=== PATIENT | female | born 1960 | race Caucasian/White ===

== ENCOUNTER 2016-09-15 08:50 | Emergency (ER) | payer OTHER ==
[~2016-09-15] VITALS: Ht 162.6 cm; Wt 98.9 kg
[~2016-09-15 08:50] MED LIST: ATIVAN0.5 MG PO; METFORMIN HCL500 MG PO; NAPROSYN500 MG PO; OXYCONTIN10 M1 PO
[2016-09-15 09:23] LABS: HEMATOCRIT 33.9 % (37.0-47.0); HEMOGLOBIN 12.5 gm/dL (12.0-15.0); MCV 83.9 fL (80.0-100.0); RBC 4.04 mil/uL (4.20-5.00); RDW 13.4 % (10.5-14.5); WBC 9.1 thou/uL (4.0-11.0)
[2016-09-15 10:43] VITALS: BP 148/57
== END 2016-09-15 10:44 | disposition home or self-care (01) ==
LOC: ER 08:50
PROVIDERS: Emergency Medicine
DX: R04.0 Epistaxis (principal); I10 Essential (primary) hypertension; E11.9 Type 2 diabetes mellitus without complications; F31.9 Bipolar disorder, unspecified; F41.9 Anxiety disorder, unspecified; F20.89 Other schizophrenia; Z88.1 Allergy status to other antibiotic agents; Z88.0 Allergy status to penicillin; Z88.8 Allergy status to other drugs, medicaments and biological substances

== ENCOUNTER 2016-12-31 21:16 | Inpatient (IN) | payer OTHER ==
[~2016-12-31] VITALS: Ht 162.6 cm; Wt 96.3 kg
--- NOTE | ~2016-12-31 | EKG ---
[address] [place] [address] ELECTROCARDIOGRAM REPORT Name: KRISTINA STEVENSONLE Room #: 170-5 ADM IN M.R.#: [id number] Admission: 12/31/16 Attend Phys: Derek Alegria MD Discharge: Date of : 56 Report #: [id number] THIS REPORT FOR: //name// [facility] ED Test Date: 2016-12-31 Test Time: 21:54:04 Pat Name: JUNIOR STEVENSON Department: Room: 170 Gender: F Senior Instructor: [id number] : 1960 Requested By: Brett Dunne Order Number: [id number] MD: Timothy Jensen Measurements Intervals [place] Rate: 67 P: 43 NV: 149 QRS: 40 QRSD: 113 T: 54 QT: 478 QTc: 505 Interpretive Statements Sinus rhythm Borderline prolonged QT interval No previous ECG available for comparison Electronically Signed On 01-01-2017 8:36:11 CDT by Timothy Jensen [email or web address] <ELECTRONICALLY SIGNED> By: Timothy Jensen MD, [facility] 01/01/17 0836 [id number] Timothy Jensen MD, FACC /EPI
[2016-12-31 21:18] VITALS: BP 150/94
[2016-12-31 22:50] LABS: ABSOLUTE NEUTROPHILS 10.6 thou/uL (1.4-8.2); BASOPHILS 0.3 % (0.0-2.0); EOSINOPHILS 0.9 % (0.0-3.0); HEMATOCRIT 32.4 % (37.0-47.0); HEMOGLOBIN 11.7 gm/dL (12.0-15.0); LYMPHOCYTES 7.9 % (24.0-44.0); MCH 30.2 pg (26.0-34.0); MCHC 36.1 g/dL (28.0-37.0); MCV 83.7 fL (80.0-100.0); MONOCYTES 6.2 % (1.0-8.0); PLATELET COUNT 303 thou/uL (150-400); POLYS 84.7 % (36.0-66.0); RBC 3.87 mil/uL (4.20-5.00); RDW 13.3 % (10.5-14.5); WBC 12.5 thou/uL (4.0-11.0)
[2016-12-31 22:52] LABS: MANUAL DIFF NO
[2016-12-31 22:59] LABS: ANION GAP 3 mmol/L (7-16); BUN 8 mg/dL (7-18); CALCIUM 8.4 mg/dL (8.5-10.1); CHLORIDE 84 mmol/L (98-107); CO2 30 mmol/L (21-32); CREATININE 0.8 mg/dL (0.6-1.0); GLUCOSE 160 mg/dL (74-106)
[2016-12-31 23:00] LABS: POTASSIUM 2.9 mmol/L (3.5-5.1); SODIUM 117 mmol/L (136-145)
[2016-12-31 23:12] LABS: ALKALINE PHOSPHATASE 84 U/L (46-116); NT-PRO BRAIN NAT PEPTIDE 329 pg/mL (<300); SGOT 20 U/L (15-37); SGPT 19 U/L (30-65); TOTAL BILIRUBIN 0.3 mg/dL (<0.1-1.0); TOTAL PROTEIN 6.7 g/dL (6.4-8.2); TROPONIN-I < 0.04 ng/mL (<0.04-0.07)
[2017-01-01] MEDS ORDERED: ABILIFY15 MG (00:12)
[2017-01-01] MEDS ORDERED: FIBER TABS625 MG (00:13)
[2017-01-01] MEDS ORDERED: LIPITOR10 MG PO (00:13)
[2017-01-01] MEDS ORDERED: FLORANEX TABLE1 EACH (00:13)
[2017-01-01] MEDS ORDERED: CENTRUM SILVER1 EAC4 PO (00:14)
[2017-01-01] MEDS ORDERED: HYDROCHLOROTH12.5 M1 PO (00:14)
[2017-01-01] MEDS ORDERED: LISINOPRIL10 MG PO (00:14)
[2017-01-01] MEDS ORDERED: ACTONEL150 MG (00:15)
[2017-01-01] MEDS ORDERED: GAS RELIEF80 MG PO (00:16)
[2017-01-01] MEDS ORDERED: VITAMIN D35000 UNIT (00:16)
[2017-01-01] MEDS ORDERED: CELEXA20 MG PO (00:17)
[2017-01-01] MEDS ORDERED: VITAMIN E200 UNI4 (00:17)
[2017-01-01] MEDS ORDERED: CONSTULOSE10 GM/15 M PO (00:18)
[2017-01-01] MEDS ORDERED: LAMICTAL100 MG PO (00:18)
[2017-01-01] MEDS ORDERED: OYSTER SHELL 51 EACH (00:19)
[2017-01-01] MEDS ORDERED: MAGOX 400400 MG PO (00:19)
[2017-01-01] MEDS ORDERED: ATIVAN0.5 MG PO (00:19)
[2017-01-01] MEDS ORDERED: NEURONTIN600 MG PO (00:20)
[2017-01-01] MEDS ORDERED: REMERON15 MG (00:20)
[2017-01-01] MEDS ORDERED: SEROQUEL 25 MG25 M1 PO (00:21)
[2017-01-01] MEDS ORDERED: NORTRIPTYLINE H25 M3 PO (00:21)
[2017-01-01] MEDS ORDERED: SENEXON-S TABL1 EACH PO (00:22)
[2017-01-01] MEDS ORDERED: VENLAFAXINE HC225 MG PO (00:23)
[2017-01-01] MEDS ORDERED: IBUPROFEN 600600 M1 PO (00:24)
[2017-01-01] MEDS ORDERED: TYLENOL325 MG PO (00:24)
[2017-01-01] MEDS ORDERED: METHOCARBAMOL750 MG PO (00:25)
[2017-01-01] MEDS ORDERED: EUCERIN CREME120 GM TOP (00:26)
[2017-01-01] MEDS ORDERED: GLUCAGEN1 M2 (00:29)
[2017-01-01] MEDS ORDERED: GLUCOSE TAB PO (00:29)
[2017-01-01] MEDS ORDERED: HALDOL5 MG/1 ML IM (00:29)
[2017-01-01] MEDS ORDERED: HALDOL PO (00:36)
[2017-01-01] MEDS ORDERED: ATIVAN2 MG PO (00:44)
[2017-01-01] MEDS ORDERED: LANTUS100 UNIT/M SUBQ (00:44)
[2017-01-01] MEDS ORDERED: LORAZEPAM 22 MG/1 ML IM (00:46)
[2017-01-01] MEDS ORDERED: NOVOLOG100 UNIT/1 SUBQ ×3 (00:47→00:48)
[2017-01-01] MEDS ORDERED: NYAMYC15 GM TOP (00:48)
[2017-01-01] MEDS ORDERED: SYMLINPEN2700 MCG/2 SUBQ (00:50)
[2017-01-01 09:41] LABS: CREATININE 0.8 mg/dL (0.6-1.0); MAGNESIUM 1.9 mg/dL (1.8-2.4); POTASSIUM 3.5 mmol/L (3.5-5.1)
[2017-01-01 09:46] VITALS: BP 138/52
[2017-01-01 10:33] VITALS: BP 135/56
[2017-01-01 12:00] VITALS: BP 152/75
[2017-01-01 16:00] VITALS: BP 135/60
[2017-01-01 19:14] VITALS: BP 146/96
[2017-01-02 03:49] VITALS: BP 135/57
[2017-01-02 06:59] VITALS: BP 135/59
[2017-01-02 11:22] VITALS: BP 130/45
[2017-01-02 18:50] VITALS: BP 148/76
[2017-01-03 03:07] VITALS: BP 176/70
[2017-01-03 07:31] VITALS: BP 151/83
[2017-01-03 08:24] LABS: HEMATOCRIT 34.9 % (37.0-47.0); HEMOGLOBIN 12.4 gm/dL (12.0-15.0); MCH 30.7 pg (26.0-34.0); MCHC 35.5 g/dL (28.0-37.0); MCV 86.6 fL (80.0-100.0); RBC 4.04 mil/uL (4.20-5.00); RDW 13.8 % (10.5-14.5); WBC 8.6 thou/uL (4.0-11.0)
[2017-01-03 08:43] LABS: ALBUMIN 3.1 g/dL (3.4-5.0); CALCIUM 8.6 mg/dL (8.5-10.1); PHOSPHORUS 3.9 mg/dL (2.5-4.9); POTASSIUM 4.1 mmol/L (3.5-5.1)
== END 2017-01-03 14:54 | DRG 641 ==
LOC: ER 21:16 → 4W 23:16 → EROBS 23:16 → 4W 01-01 10:30
PROVIDERS: Emergency Medicine; Hospitalist; Nurse Practitioner Acute Care
DX: E87.1 Hypo-osmolality and hyponatremia (principal); E11.9 Type 2 diabetes mellitus without complications; F31.9 Bipolar disorder, unspecified; R00.0 Tachycardia, unspecified; E87.6 Hypokalemia; F17.210 Nicotine dependence, cigarettes, uncomplicated; F41.9 Anxiety disorder, unspecified; I10 Essential (primary) hypertension; F20.9 Schizophrenia, unspecified; Z88.0 Allergy status to penicillin; Z88.1 Allergy status to other antibiotic agents; Z88.6 Allergy status to analgesic agent; Z90.710 Acquired absence of both cervix and uterus; Z79.899 Other long term (current) drug therapy
CPT/HCPCS: 10045